=== PATIENT | female | born 2000 | race Caucasian/White ===

== ENCOUNTER → 2018-10-22 | Outpatient (CLI) | payer OTHER ==
[~2018-10-22] MED LIST: AMOXICILLIN500 MG PO; BACTRIM DS 8001 TA1 PO; CLARITIN-D 12 H1 TAB PO; MACROBID100 M1 PO; NKHM; PRENATAL1 TA7 PO; ZIPSOR25 MG PO; ZITHROMAX250 MG PO; ZYRTEC10 M1 PO; Zofran4 MG PO
== END | disposition home or self-care (01) ==
LOC: LAB 08:37
DX: Z34.93 Encounter for supervision of normal pregnancy, unspecified, third trimester (principal); Z3A.28 28 weeks gestation of pregnancy

== ENCOUNTER 2024-06-29 23:44 | Emergency (ER) | payer SELFPAY ==
[~2024-06-29] VITALS: Ht 154.9 cm; Wt 63.5 kg
[2024-06-29] MEDS ORDERED: methylPREDNISolone sod succ 125 MG VIAL IM ONE (23:55)
== END 2024-06-30 00:35 | disposition home or self-care (01) ==
LOC: ED 23:44
DX: S27.818A Other injury of esophagus (thoracic part), initial encounter (principal); X58.XXXA Exposure to other specified factors, initial encounter; Y93.89 Activity, other specified; Y92.009 Unspecified place in unspecified non-institutional (private) residence as the place of occurrence of the external cause; Y99.8 Other external cause status

== ENCOUNTER → 2025-03-10 | Outpatient (CLI) | payer BC ==
[2025-03-10 09:46] LABS: BASO % 0.2 % (0.0-1.0); EOS # 0.2 10*3/uL (0.0-0.4); EOS % 1.9 % (1.0-4.0); HEMATOCRIT 38.8 % (37.0-47.0); MEAN CELL VOLUME 85.7 fl (81.0-99.0); MEAN CORPUSCULAR HGB 27.8 pg (27.0-31.0); MEAN CORPUSCULAR HGB CONC 32.5 g/dl (33.0-37.0); MEAN PLATELET VOLUME 8.9 fl (9.6-12.3); MONO # 0.5 10*3/uL (0.1-1.0); MONO % 6.4 % (3.0-9.0); NEUT # 6.2 10*3/uL (2.3-7.9); NEUT % 75.2 % (47.0-73.0); PLATELET COUNT AUTOMATED 293 10*3/uL (130-400); RED BLOOD COUNT 4.53 10*6/uL (4.10-5.10); RED CELL DISTRI WIDTH 13.6 % (0-14.5); WHITE BLOOD COUNT 8.3 10*3/uL (4.8-10.8)
[2025-03-10 10:14] LABS: ALKALINE PHOSPHATASE 76 U/L (46-116); BUN 11 mg/dl (9-23); CHLORIDE 105 mmol/L (98-107); POTASSIUM 3.8 mmol/L (3.4-5.1); SGPT/ALT 32 U/L (5-49); TOTAL PROTEIN 7.2 gm/dL (6.0-8.0)
[2025-03-12 12:07] LABS: TB1 Ag VALUE 0.44 IU/mL (.)
== END | disposition home or self-care (01) ==
LOC: LAB 09:13
PROVIDERS: ATTEND Nurse Practitioner Family
DX: D48.5 Neoplasm of uncertain behavior of skin (principal); L40.0 Psoriasis vulgaris

== ENCOUNTER → 2025-04-08 | Outpatient (CLI) | payer BC | END | disposition home or self-care (01) | LOC: LAB 12:08 | PROVIDERS: ATTEND Nurse Practitioner Family | DX: Z01.84 Encounter for antibody response examination (principal) ==